=== PATIENT | male | born 1975 | race Caucasian/White ===

== ENCOUNTER 2018-03-16 15:47 | Observation (INO) | payer MEDICAID, OTHER ==
[~2018-03-16] VITALS: Ht 182.9 cm; Wt 66.0 kg
--- NOTE | 2018-03-16 17:07 | NUR ---
PHONE REPORT TO SOC
[2018-03-16 17:14] LABS: BASOPHILS # (AUTO) 0.02 x10^3/uL (0-0.1); BASOPHILS % (AUTO) 0 % (0-1); EOSINOPHILS # (AUTO) 0.16 x10^3/uL (0-0.4); EOSINOPHILS % (AUTO) 2 % (1-7); LYMPHOCYTES # (AUTO) 1.34 x10^3/uL (1-3.4); LYMPHOCYTES % (AUTO) 16 % (22-44); MD NO; MEAN CORPUSCULAR HEMOGLOBIN 32.5 pg (27.5-34.5); MEAN CORPUSCULAR VOLUME 92.7 fL (81-97); MEAN PLATELET VOLUME 7.6 fL (7.4-10.4); MONOCYTES # (AUTO) 0.42 x10^3/uL (0.2-0.8); MONOCYTES % (AUTO) 5 % (2-9); NEUTROPHILS # (AUTO) 6.33 x10^3/uL (1.8-6.8); NEUTROPHILS % (AUTO) 77 % (42-75); PLATELET COUNT 218 x10^3/uL (130-400); RED BLOOD COUNT 4.82 x10^6/uL (4.38-5.82); RED CELL DISTRIBUTION WIDTH 13.1 % (9.4-14.8)
[2018-03-16 17:26] LABS: ANION GAP 6 mmol/L (5-15); CALCIUM 8.4 mg/dL (8.5-10.1); CHLORIDE 108 mmol/L (98-107)
[2018-03-16 17:27] LABS: CREATININE 0.94 mg/dL (0.7-1.3)
[2018-03-16 17:28] LABS: ACETAMINOPHEN < 2 mcg/mL (10-30); SALICYLATE LEVEL < 1.7 mg/dL (2.8-20.0)
--- NOTE | 2018-03-16 18:13 | NUR ---
PLACED ON LEGAL HOLD BY SOC. ROOM CLEARED, BELONGINGS INTO 2 LABELED BAGS>LOCKER. SITTER IN HALLWAY. WILL MONITOR.
[2018-03-16 18:27] LABS: AMPHETAMINE SCREEN, URINE Negative (Negative); BARBITURATE SCREEN, URINE Negative (Negative); BENZODIAZEPINE SCREEN, URINE Negative (Negative); CANNABINOID SCREEN, URINE Positive (Negative); COCAINE SCREEN, URINE Negative (Negative); METHADONE SCREEN, URINE Negative (Negative); OPIATE SCREEN, URINE Negative (Negative)
--- NOTE | 2018-03-16 18:52 | NUR ---
received report from MELANI Reed.
--- NOTE | 2018-03-16 19:01 | NUR ---
TP RN: PACKET FAXED TO [facility]; AWAITING CONFIRMATION.
--- NOTE | 2018-03-16 19:05 | NUR ---
LEDA RN: FAX COMPLETED TO [facility].
[2018-03-16] MEDS ORDERED: IBUPROFEN 200 MG TABLET PO ONE (20:30)
[2018-03-16] MEDS ORDERED: IBUPROFEN 600 MG TABLET ONE (20:34)
--- NOTE | 2018-03-16 20:51 | NUR ---
patient c/o pain on his right lower leg. medicated. meal provided.
--- NOTE | 2018-03-16 22:51 | NUR ---
patient awake, quiet , watching tv. no complaints at this time.
--- NOTE | 2018-03-17 00:31 | NUR ---
PT SLEEPING AT THIS TIME. RR14 AND UNLABORED. NAD. SITTER IN PLACE.
--- NOTE | 2018-03-17 00:46 | NUR ---
2N CURRENTLY FULL BUT WILL LET ED KNOW IF ANY DISCHARGES OCCUR.
--- NOTE | 2018-03-17 01:12 | NUR ---
patient placed on regular / hospital bed. no complaints at this time. states that ibuprofer helped a lot for his pain.
--- NOTE | 2018-03-17 03:50 | NUR ---
patient sleeping, respiration unlabored. sitter at the door.
--- NOTE | 2018-03-17 06:22 | NUR ---
no complaints. Vital signs stable. breakfast ordered.
--- NOTE | 2018-03-17 07:02 | NUR ---
SBAR HAND-OFF REPORT RECEIVED FROM MELANI LUO. ASSUMING CARE OF PATIENT.
--- NOTE | 2018-03-17 10:00 | NUR ---
SBAR HAND-OFF REPORT GIVEN TO MELANI CAMP.
--- NOTE | 2018-03-17 10:02 | NUR ---
BS REPORT FROM MARIA EUGENIA Vallejo RN. PT CARE ASSUMED. PT SLEEPING, SUPINE POSITION, SIDE RAILS UP X2, RESP EVEN & UNLABORED. SITTER AT ROOM ENTRANCE.
--- NOTE | 2018-03-17 11:22 | NUR ---
DOZING ON BED; EASILY AWAKENED. SITTER AT ROOM ENTRANCE.
--- NOTE | 2018-03-17 12:48 | NUR ---
CALL PLACED TO [facility] AT THIS TIME. PATIENT HAS 17 PATIENTS AHEAD OF HIM AND IT WILL BE AT LEAST 24 HOURS BEFORE PLACEMENT.
--- NOTE | 2018-03-17 13:00 | NUR ---
PT RESTING QUIETLY ON BED W/ SIDE RAILS UP X2. SITTER AT DOOR.
--- NOTE | 2018-03-17 14:10 | NUR ---
PT RESTING QUIETLY ON BED, SIDE RAILS UP X2, SITTER AT DOOR.
--- NOTE | 2018-03-17 15:00 | NUR ---
PT RESTING QUIETLY ON BED, SIDE RAILS UP X2, SITTER AT DOOR. FOOD TRAY DELIVERED.
--- NOTE | 2018-03-17 17:05 | NUR ---
PT RESTING QUIETLY W/ SIDE RAILS UP X2, SITTER AT DOORWAY. PT CALM, COOPERATIVE, DENIES SI. 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
--- NOTE | 2018-03-17 17:12 | NUR ---
PT REPORT TO [facility] FOR ROOM 265 Addendum: 03/17/18 at 1713 by LENORE PER [facility], THEY NEED MEDICAL CLEARANCE FROM [facility] PT ADMISSION TO THEIR UNIT. ENVIRONMENTAL SERVICES PROJECT MANAGER WILL BE NOTIFIED .
[2018-03-17] MEDS: IBUPROFEN 600 MG TABLET PO PRN (18:14)
[2018-03-17 18:33] VITALS: BP 127/78
[2018-03-17 19:24] VITALS: BP 113/68
[2018-03-17] MEDS: NICOTINE 21 MG/24 HR PATCH.TD24 TD SCH (21:00)
[2018-03-18 08:25] VITALS: BP 123/77
[2018-03-18] MEDS: ACETAMINOPHEN 325 MG TABLET PO PRN ×2 (14:49→20:07)
[2018-03-18 19:20] VITALS: BP 142/91
[2018-03-18] MEDS: NICOTINE 21 MG/24 HR PATCH.TD24 TD SCH (20:08)
[2018-03-18] MEDS ORDERED: GUAIFENESIN 100 MG/5 ML, 5ML UDC ONE (23:13)
[2018-03-18] MEDS: GUAIFENESIN 100 MG/5 ML, 10ML UDC PO PRN (23:15)
[2018-03-18] MEDS ORDERED: GUAIFENESIN/DM 200-20MG, 10ML UDC PO PRN (23:30)
[2018-03-19] MEDS: ACETAMINOPHEN 325 MG TABLET PO PRN ×4 (03:20→21:03)
[2018-03-19] MEDS ORDERED: CALCIUM CARBONATE 500 MG TAB.CHEW PO PRN (03:30)
[2018-03-19 08:03] VITALS: BP 137/85
[2018-03-19] MEDS: AMOXICILLIN/CLAV 875-125MG TABLET PO SCH ×2 (12:07→21:02)
[2018-03-19 19:30] VITALS: BP 118/76
[2018-03-19] MEDS ORDERED: GUAIFENESIN 100 MG/5 ML, 5ML UDC ONE (21:02)
[2018-03-19] MEDS: NICOTINE 21 MG/24 HR PATCH.TD24 TD SCH (21:03)
[2018-03-20] MEDS: ACETAMINOPHEN 325 MG TABLET PO PRN ×2 (07:24→16:51)
[2018-03-20 07:26] VITALS: BP 118/77
[2018-03-20] MEDS: AMOXICILLIN/CLAV 875-125MG TABLET PO SCH ×2 (08:37→21:42)
[2018-03-20] MEDS: GUAIFENESIN 100 MG/5 ML, 10ML UDC PO PRN ×2 (08:37→16:51)
[2018-03-20 13:05] LABS: RAPID INFLUENZA A Negative (Negative); RAPID INFLUENZA B Negative (Negative)
[2018-03-20 19:31] VITALS: BP 110/75
[2018-03-20] MEDS ORDERED: GUAIFENESIN 100 MG/5 ML, 5ML UDC ONE (21:41)
[2018-03-20] MEDS: NICOTINE 21 MG/24 HR PATCH.TD24 TD SCH (21:42)
[2018-03-21 08:00] VITALS: BP 109/73
[2018-03-21] MEDS: AMOXICILLIN/CLAV 875-125MG TABLET PO SCH ×2 (08:51→20:34)
[2018-03-21] MEDS: IBUPROFEN 600 MG TABLET PO PRN (08:58)
[2018-03-21 19:30] VITALS: BP 113/68
[2018-03-21] MEDS: ACETAMINOPHEN 325 MG TABLET PO PRN (19:50)
[2018-03-21] MEDS: NICOTINE 21 MG/24 HR PATCH.TD24 TD SCH (21:28)
[2018-03-22] MEDS ORDERED: DIPHENHYDRAMINE 25 MG CAPSULE PO ONE (04:00)
[2018-03-22 08:18] VITALS: BP 113/68
[2018-03-22] MEDS: AMOXICILLIN/CLAV 875-125MG TABLET PO SCH ×2 (09:00→21:25)
[2018-03-22] MEDS: ACETAMINOPHEN 325 MG TABLET PO PRN (15:07)
[2018-03-22 19:50] VITALS: BP 134/77
[2018-03-22] MEDS: IBUPROFEN 600 MG TABLET PO PRN (21:25)
[2018-03-22] MEDS: NICOTINE 21 MG/24 HR PATCH.TD24 TD SCH (21:30)
[2018-03-23 08:19] VITALS: BP 114/74
[2018-03-23] MEDS: ACETAMINOPHEN 325 MG TABLET PO PRN ×2 (10:36→21:03)
[2018-03-23] MEDS: AMOXICILLIN/CLAV 875-125MG TABLET PO SCH ×2 (10:36→20:58)
[2018-03-23 20:24] VITALS: BP 115/74
[2018-03-23] MEDS: NICOTINE 21 MG/24 HR PATCH.TD24 TD SCH ×2 (21:00→21:02)
[2018-03-24] MEDS: GUAIFENESIN 100 MG/5 ML, 10ML UDC PO PRN (00:41)
[2018-03-24 07:36] VITALS: BP 123/74
[2018-03-24] MEDS: AMOXICILLIN/CLAV 875-125MG TABLET PO SCH (09:06)
[2018-03-24] MEDS: ACETAMINOPHEN 325 MG TABLET PO PRN (17:57)
[2018-03-24 19:37] VITALS: BP 124/82
[2018-03-24] MEDS: NICOTINE 21 MG/24 HR PATCH.TD24 TD SCH (20:36)
[2018-03-24] MEDS: IBUPROFEN 600 MG TABLET PO PRN (21:24)
[2018-03-25] MEDS ORDERED: GUAIFENESIN 100 MG/5 ML, 5ML UDC ONE (03:29)
[2018-03-25] MEDS: GUAIFENESIN 100 MG/5 ML, 10ML UDC PO PRN (03:35)
[2018-03-25 08:04] VITALS: BP 121/75
[2018-03-25] MEDS ORDERED: NICO-487 TD (12:32)
[2018-03-25] MEDS ORDERED: GUAI100L11 PO (12:32)
== END 2018-03-25 13:30 | disposition home or self-care (01) ==
LOC: ED 16:10 → EDIP 03-17 16:35 → 2N 03-17 17:35
PROVIDERS: ADMIT Internal Medicine; ATTEND Internal Medicine
DX: R45.851 Suicidal ideations (principal); F31.9 Bipolar disorder, unspecified; F25.9 Schizoaffective disorder, unspecified; F90.9 Attention-deficit hyperactivity disorder, unspecified type; M19.90 Unspecified osteoarthritis, unspecified site; Z87.891 Personal history of nicotine dependence; Z91.14 Patient's other noncompliance with medication regimen; Z91.19 Patient's noncompliance with other medical treatment and regimen
CPT/HCPCS: 36415; 73080; 73564; 73630; 73721; 80048; 80307; 80329; 82040; 84550; 85025; 87400; 99284; G0378; Q0163; G0480

== ENCOUNTER 2018-10-14 01:26 | Emergency (ER) | payer MEDICAID ==
[~2018-10-14] VITALS: Ht 180.3 cm; Wt 75.0 kg
[2018-10-14 02:57] VITALS: BP 121/74
== END 2018-10-14 03:08 | disposition home or self-care (01) ==
LOC: ED 02:53
DX: F41.1 Generalized anxiety disorder (principal); R06.00 Dyspnea, unspecified; B34.9 Viral infection, unspecified; Z72.9 Problem related to lifestyle, unspecified; F20.9 Schizophrenia, unspecified; F90.9 Attention-deficit hyperactivity disorder, unspecified type
CPT/HCPCS: 71046; 93005; 99283

== ENCOUNTER 2018-10-16 05:43 | Emergency (ER) | payer MEDICAID ==
[~2018-10-16] VITALS: Ht 180.3 cm; Wt 69.0 kg
[2018-10-16 08:22] VITALS: BP 93/59
== END 2018-10-16 08:24 | disposition home or self-care (01) ==
LOC: ED 05:59
DX: S90.811A Abrasion, right foot, initial encounter (principal); S90.812A Abrasion, left foot, initial encounter; F41.1 Generalized anxiety disorder; Z72.9 Problem related to lifestyle, unspecified; F17.210 Nicotine dependence, cigarettes, uncomplicated; X58.XXXA Exposure to other specified factors, initial encounter; Y93.89 Activity, other specified; Y92.89 Other specified places as the place of occurrence of the external cause; Y99.8 Other external cause status
CPT/HCPCS: 99283

== ENCOUNTER 2018-10-16 19:14 | Emergency (ER) | payer MEDICAID ==
[2018-10-16 19:23] VITALS: BP 137/79
== END 2018-10-16 19:44 | disposition home or self-care (01) ==
LOC: ED 19:28
DX: M25.562 Pain in left knee (principal); F41.1 Generalized anxiety disorder; F25.9 Schizoaffective disorder, unspecified; F90.9 Attention-deficit hyperactivity disorder, unspecified type; Z72.9 Problem related to lifestyle, unspecified
CPT/HCPCS: 96372; 99283; J1885

== ENCOUNTER 2018-10-19 08:40 | Emergency (ER) | payer MEDICAID ==
[~2018-10-19] VITALS: Ht 180.3 cm; Wt 76.0 kg
[~2018-10-19 08:40] MED LIST: GUAI100L11 PO; NICO-487 TD
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
[2018-10-19] MEDS ORDERED: KETOROLAC 60 MG/2 ML ONE (09:23)
[2018-10-19] MEDS ORDERED: METHOCARBAMOL 750 MG TABLET ONE (09:23)
[2018-10-19] MEDS ORDERED: KETOROLAC 30 MG/1 ML IM ONE (09:30)
[2018-10-19] MEDS ORDERED: METHOCARBAMOL 750 MG TABLET PO ONE (09:30)
--- NOTE | 2018-10-19 10:28 | NUR ---
DPatient/Caregiver given discharge instructions and they have confirmed that they understand the instructions. Patient ambulatory with steady gait.
[2018-10-19 10:44] VITALS: BP 139/83
== END 2018-10-19 10:42 | disposition home or self-care (01) ==
LOC: ED 09:40
DX: G44.219 Episodic tension-type headache, not intractable (principal); F31.9 Bipolar disorder, unspecified; F41.1 Generalized anxiety disorder; F17.200 Nicotine dependence, unspecified, uncomplicated; F20.9 Schizophrenia, unspecified; F90.9 Attention-deficit hyperactivity disorder, unspecified type
CPT/HCPCS: 96372; 99283; J1885

== ENCOUNTER 2018-10-20 03:06 | Emergency (ER) | payer MEDICAID ==
[~2018-10-20] VITALS: Ht 180.3 cm; Wt 70.1 kg
[2018-10-20 03:07] VITALS: BP 139/79
--- NOTE | 2018-10-20 03:20 | NUR ---
er md in to assess pt
--- NOTE | 2018-10-20 03:24 | NUR ---
pt states he is having a lot of stress in his life due to problems with family members and his stress is causing him headache, tightness in his chest, and inability to sleep. pt states he wants medcation for his anxiety.
[2018-10-20] MEDS ORDERED: hydrOXyzine 50MG TABLET ONE (03:28)
[2018-10-20] MEDS ORDERED: hydrOXyzine 50MG TABLET PO ONE (03:30)
== END 2018-10-20 03:52 | disposition home or self-care (01) ==
LOC: ED 03:48
DX: F41.1 Generalized anxiety disorder (principal); R07.89 Other chest pain; R51 Headache; F31.9 Bipolar disorder, unspecified; F20.9 Schizophrenia, unspecified; F17.200 Nicotine dependence, unspecified, uncomplicated
CPT/HCPCS: 99284

== ENCOUNTER 2018-11-03 16:08 | Emergency (ER) | payer MEDICAID ==
[~2018-11-03] VITALS: Ht 180.3 cm; Wt 65.3 kg
[2018-11-03 17:04] VITALS: BP 98/76
== END 2018-11-03 18:06 | disposition home or self-care (01) ==
LOC: ED 18:00
DX: J15.9 Unspecified bacterial pneumonia (principal); F17.210 Nicotine dependence, cigarettes, uncomplicated
CPT/HCPCS: 71046; 93005; 94640; 99283; 99406; J7620; J7512

== ENCOUNTER 2018-11-03 23:19 | Emergency (ER) | payer MEDICAID ==
[~2018-11-03] VITALS: Ht 180.3 cm; Wt 69.9 kg
[2018-11-03 23:21] VITALS: BP 116/65
== END 2018-11-04 02:42 | disposition left against medical advice (07) ==
LOC: ED 11-04 02:00
DX: Z72.9 Problem related to lifestyle, unspecified (principal); Z76.0 Encounter for issue of repeat prescription
CPT/HCPCS: 99281

== ENCOUNTER 2019-09-23 09:54 | Emergency (ER) | payer MEDICAID ==
[~2019-09-23] VITALS: Ht 180.3 cm; Wt 74.0 kg
[2019-09-23 10:01] VITALS: BP 121/89
--- NOTE | 2019-09-23 10:43 | NUR ---
LATE ENTRY FOR 1026. POLICE CAPTAIN SENIOR: PT TO ROOM FROM LOBBY AT THIS TIME. RIZWAN
== END 2019-09-23 11:29 | disposition home or self-care (01) ==
LOC: ED 11:00
DX: F41.1 Generalized anxiety disorder (principal); J45.909 Unspecified asthma, uncomplicated; F17.210 Nicotine dependence, cigarettes, uncomplicated
CPT/HCPCS: 99283

== ENCOUNTER 2019-10-18 17:59 | Emergency (ER) | payer MEDICAID ==
[~2019-10-18] VITALS: Ht 170.2 cm; Wt 69.9 kg
--- NOTE | 2019-10-18 18:45 | NUR ---
PT AMBULATED BACK TO ROOM WITHOUT DIFFICULTY.
--- NOTE | 2019-10-18 19:04 | NUR ---
TIGRE OLIVARES AT .
[2019-10-18 19:13] LABS: MICROSCOPIC NOT IND
[2019-10-18] MEDS ORDERED: AZITHROMYCIN 500 MG TABLET PO ONE (19:30)
[2019-10-18] MEDS ORDERED: CEFTRIAXONE 250 MG IM ONE (19:30)
[2019-10-18] MEDS ORDERED: CEFTRIAXONE 250 MG ONE (19:37)
[2019-10-18] MEDS ORDERED: LIDOCAINE-MPF 1%, 5ML ONE (19:37)
[2019-10-18] MEDS ORDERED: AZITHROMYCIN 500 MG TABLET ONE (19:37)
[2019-10-18 20:12] VITALS: BP 134/93
--- NOTE | 2019-10-18 20:12 | NUR ---
PT WAS MEDICATED PER ORDERS. NO SIGNS OF REACTION TO ABX. D/C INSTRUCTIONS & F/U APPT RV'WD WITH PT, HE VERBALIZES UNDERSTANDING. AMBULATED OUT OF ED WITHOUT DIFFICULTY.
== END 2019-10-18 20:13 ==
LOC: ED 19:56
DX: N34.2 Other urethritis (principal); R30.0 Dysuria; R36.9 Urethral discharge, unspecified; J45.909 Unspecified asthma, uncomplicated
CPT/HCPCS: 81003; 87491; 87591; 96372; 99283; J0696

== ENCOUNTER 2019-10-20 22:50 | Emergency (ER) | payer MEDICAID ==
[~2019-10-20] VITALS: Ht 180.3 cm; Wt 70.6 kg
[2019-10-20 22:51] VITALS: BP 141/90
--- NOTE | 2019-10-20 23:00 | NUR ---
PAY STATION COLLECTOR: CHARGE AWARE OF PT STATUS. PT STRIPPED AND CHANGED INTO GOWN. BELONGINGS REMOVED, TAGGED, AND PLACED IN PSYCH LOCKER. GARAGE DOOR SLIDERS PULLED. SITTER IN LINE OF SIGHT.
--- NOTE | 2019-10-20 23:05 | NUR ---
PT HAS 2 BAGS, 1 PERSONAL BACKPACK AND 1 PATIENT BELONGING BACK, LABELED AND LOCKED IN PATIENT LOCKER.
--- NOTE | 2019-10-21 01:18 | NUR ---
Mihir lucia in [facility] - 10/21/19 at 0118 by REGLA REPORT TO NEPTALI Kelly RN
--- NOTE | 2019-10-21 01:19 | NUR ---
REPORT TO NEPTALI Kelly RN
== END 2019-10-21 02:56 | disposition home or self-care (01) ==
LOC: ED 23:11
DX: F43.22 Adjustment disorder with anxiety (principal); Z72.9 Problem related to lifestyle, unspecified; J45.909 Unspecified asthma, uncomplicated
CPT/HCPCS: 99281; 99283

== ENCOUNTER 2019-10-31 17:48 | Emergency (ER) | payer MEDICAID ==
[~2019-10-31] VITALS: Ht 180.3 cm; Wt 70.2 kg
[2019-10-31 18:15] VITALS: BP 106/73
--- NOTE | 2019-10-31 19:08 | NUR ---
PT ROOMED. C/O RIGHT THUMB PAIN X2 DAYS. CALL LIGHT PLACED WITHIN REACH.
== END 2019-10-31 19:48 | disposition home or self-care (01) ==
LOC: ED 19:15
DX: M79.641 Pain in right hand (principal); F10.10 Alcohol abuse, uncomplicated; Y90.0 Blood alcohol level of less than 20 mg/100 ml; F15.10 Other stimulant abuse, uncomplicated; F17.210 Nicotine dependence, cigarettes, uncomplicated; J45.909 Unspecified asthma, uncomplicated; Z72.9 Problem related to lifestyle, unspecified
CPT/HCPCS: 29125; 99283

== ENCOUNTER 2019-11-06 16:00 | Emergency (ER) | payer MEDICAID ==
[~2019-11-06] VITALS: Ht 180.3 cm; Wt 71.2 kg
[2019-11-06 16:11] VITALS: BP 105/68
--- NOTE | 2019-11-06 16:35 | NUR ---
TASK RN: PT VERBALLY AGGRESSIVE TOWARD ERP, AND NURSING STAFF. SECURITY CALLED FOR TO ESCORT PT OFF PROPERTY
== END 2019-11-06 16:39 ==
LOC: ED 16:33
DX: S00.81XA Abrasion of other part of head, initial encounter (principal); J45.909 Unspecified asthma, uncomplicated; F17.200 Nicotine dependence, unspecified, uncomplicated; Y00.XXXA Assault by blunt object, initial encounter; Y93.89 Activity, other specified; Y92.410 Unspecified street and highway as the place of occurrence of the external cause; Y99.8 Other external cause status
CPT/HCPCS: 99281